=== PATIENT | male | born 1955 | race Caucasian/White ===

== ENCOUNTER → 2019-03-21 | Day surgery (SDC) | payer OTHER, MEDICARE | LOC: MSO 08:32 | DX: H26.9 Unspecified cataract (principal); Z88.0 Allergy status to penicillin | CPT/HCPCS: 00142; A9270-GY; J0171; J2250; J3010; V2632 ==

== ENCOUNTER → 2023-01-10 | Day surgery (SDC) | payer MEDICARE, OTHER | LOC: MSO 08:01 | DX: Z12.11 Encounter for screening for malignant neoplasm of colon (principal); D12.3 Benign neoplasm of transverse colon; K62.1 Rectal polyp; F17.210 Nicotine dependence, cigarettes, uncomplicated | CPT/HCPCS: 00811; J2704; J3010; J7120 ==

== ENCOUNTER → 2025-02-28 | Outpatient (CLI) | payer MEDICARE, OTHER ==
[~2025-02-28] MED LIST: Iohexol 350 - 100 ML VIAL IV ONE; NS 100 ML IV ONE
== END ==
LOC: RAD 08:44
DX: J43.9 Emphysema, unspecified (principal); I71.43 Infrarenal abdominal aortic aneurysm, without rupture
CPT/HCPCS: Q9967